=== PATIENT | female | born 1980 | race Caucasian/White ===

== ENCOUNTER → 2020-08-10 15:06 | Outpatient (CLI) | payer MEDICAID, SELFPAY ==
[2020-08-10 17:57] LABS: Amphetamine Urine VISTA NEGATIVE (<1000 ng/mL); Barbiturate Urine VISTA NEGATIVE (< 200 ng/mL); Benzodiazepine Urine VISTA NEGATIVE (< 200 ng/mL); Cocaine Urine VISTA NEGATIVE (< 300 ng/mL); Ecstacy Urine VISTA NEGATIVE (< 500 ng/mL); Methadone Urine VISTA NEGATIVE (< 300 ng/mL); PCP Urine VISTA NEGATIVE (< 25 ng/mL); THC Urine VISTA POSITIVE (< 50 ng/mL); Vista UDS pH Range 6
[2020-08-11 08:05] LABS: BUP Internal Control LINE = VALID (VALID); Buprenorphine Drug Screen Positive (<10 ng/mL)
== END ==
PROVIDERS: Referring Provider Anesthesiology Pain Medicine; Visit Provider Anesthesiology Pain Medicine
DX: F11.20 Opioid dependence, uncomplicated (principal)
CPT/HCPCS: 80307

== ENCOUNTER 2021-06-22 13:18 | Emergency (ER) | payer MEDICAID, SELFPAY ==
[2021-06-22 13:19] VITALS: BP 94/57; PULSE 82; RESP 17; TEMP 36.4; O2SAT 100; BMI 24.1
[2021-06-22] MEDS: 0.9% Normal Saline 1,000 ML 1000 ML IV (13:47)
[2021-06-22 13:58] LABS: Absolute Lymphocyte Count 2.44 X10^3/uL (0.83-4.51); Absolute Neutrophil Count 2.8 X10^3/uL (2.0-7.7); Basophil# 0.05 X10^3/uL; Basophil% 0.8 % (0-1); Eosinophil# 0.18 X10^3/uL; Hematocrit 34.5 % (37-47); Hemoglobin 11.3 g/dL (12.0-15.0); Lymphocyte # 2.44 X10^3/ul (0.83-4.51); Lymphocyte % 41.3 % (19-41); Mean Corp Hgb Conc 32.8 g/dL (32-36); Mean Corpuscular Hgb 31.7 pg (27.0-32.0); Mean Corpuscular Volume 96.6 fL (81-99); Mean Platelet Vol. 9.6 fl (6.2-12.0); Monocyte# 0.44 X10^3/uL; Monocyte% 7.4 % (0-10); NRBC Flagged by Analyzer 0 % (0-5); Neutrophil # 2.79 X10^3/uL (2.7-7.7); Neutrophil % 47.3 % (47-70); Platelet Count 262 K/mm3 (150-450); RBC Distribution Width CV 12.9 % (11.6-14.6); Red Blood Count 3.57 M/mm3 (4.2-5.4); White Blood Count 5.9 K/mm3 (4.4-11.0)
[2021-06-22 14:00] LABS: Bedside Glucose 89 mg/dL (74-106)
[2021-06-22 14:00] LABS: Bedside Glucose 65 mg/dL (74-106)
[2021-06-22 14:06] LABS: Internal QC Validated? YES +Cl - CLEAR BKGD; Pregnancy, Serum, hCG Quali. NEGATIVE Negative
[2021-06-22 14:19] LABS: Alcohol, Blood (Medical)-Serum < 3.0 mg/dL
[2021-06-22 14:22] LABS: AST(SGOT) 15 U/L (15-37); Alanine Aminotransfer ALT/SGPT 15 U/L (13-56); Albumin, Serum 3.8 g/dL (3.2-5.0); Alkaline Phosphatase 65 U/L (45-117); Anion Gap 4 (5-15); BUN 15 mg/dL (7-18); BUN/Creat Ratio 20.8 RATIO (10-20); Calcium,Total 8.4 mg/dL (8.5-10.1); Chloride 110 mmol/L (98-107); Creatinine, Serum 0.72 mg/dL (0.55-1.02); EST Glomerular Filtration Rate 95 mL/min (>60); Est Glom Filt Rate - Afr Amer 115 mL/min (>60); Estimated Creatinine Clearance 92.53 ml/min; Globulin 3.9 g/dL (2.2-4.2); Glucose 111 mg/dL (74-106); Potassium 3.7 mmol/L (3.5-5.1); Protein, Total 7.7 g/dL (6.4-8.2); Sodium Level 139 mmol/L (136-145); Thyroid Stim Hormone (TSH) 2.98 uIU/mL (0.358-3.74)
--- NOTE | 2021-06-22 14:22 | ED.RN ---
THIS RN ENTERS PATIENTS ROOM ASKING IF SHE IS HITTING HER VAPE IN HERE. AND PATIENT DENIES AT THIS TIME. RN STATES IT SMELLS LIKES MARIJUANA IN HERE AND JUST WANTED TO MAKE SURE . PATIENT BECOMES UPSET WITH RN AND STATES HAS A MEDICAL MARIJUANA CARD. PATIENT BECOMES UPSET WITH STATING HE IS THE ONE USING MARIJUANA NOT HER. PATIENTS AND PATIENT ARGUING IN ROOM. MULTIPLE WITNESSES IN THE HALLWAY. RN ASKS IF PATIENT CAN GIVE URINE SAMPLE AT THIS TIME. PATIENT AMBULATES TO BATHROOM INDEPENDENTLY. PATIENT CONTINUES TO BE UPSET WITH RN ASKING HER WHY NURSE IS QUESTIONING HER ABOUT HER VAPE AND MARIJUANA. PATIENT STATES SHE WOULD LIKE TO TALK TO HER AND LEAVE NOW. PATIENT STATES SHE WOULD LIKE TO FILE A GRIEVANCE AGAINST RN. CHARGE NURSE, ETHAN NOTIFIED. RITU, PATIENT ADVOCATE AT BEDSIDE. SMALL URINE SPECIMEN COLLECTED AND SENT TO LAB.
--- NOTE | 2021-06-22 14:24 | EDS_ITS ---
HPI History of Present Illness Chief Complaint: Weakness Narrative Narrative: Patient presenting with generalized weakness, confusion. She states that she noted a couple of days ago that she felt shaky at night and had some blurry vision associated with generalized weakness. She states that she generally does not take very good care of herself and does not eat well and describes eating Ramen noodles and chicken no soup mostly. She states that when she gets episodes of this shakiness that she will eat some candy and this does help her. Patient states today at work she started to feel little bit off and EMS was called. It was noted that her blood sugar was low. She was given g lucose prior to arrival and is awake and alert on exam. Patient does not have any chest pain or shortness of breath. No fever or chills. No nausea or vomiting. 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 She states she sees Dr. Meadows and saw him 2 days ago. She also states she saw her primary care provider this week. She states she has not had blood work done in a very long time. Patient does admit that she uses CBD and has a vaping pen which she uses for marijuana use. PFSH PFS Home Medications aripiprazole mg 06/22/21 [History Last Taken Unknown] atomoxetine PO 06/22/21 [History Last Taken Unknown] buprenorphine-naloxone 06/22/21 [History Last Taken Unknown] cephalexin 500 mg PO Q12 #14 cap 06/22/21 [Rx Last Taken Unknown] citalopram mg 06/22/21 [History Last Taken Unknown] fluticasone propionate INTRANASAL 06/22/21 [History Last Taken Unknown] loratadine mg 06/22/21 [History Last Taken Unknown] methylprednisolone 06/22/21 [History Last Taken Unknown] oseltamivir mg 06/22/21 [History Last Taken Unknown] quetiapine 06/22/21 [History Last Taken Unknown] topiramate 06/22/21 [History Last Taken Unknown] Allergy/AdvReac Type Severity Reaction Status Date / Time No Known Allergies Allergy Verified 06/22/21 13:44 Social History Smoking Status: Current every day smoker tobacco type: e-cigarettes ROS ROS ED Constitutional Constitutional ED: Reports sweats; Denies chills or fever(s) Eyes Eyes: Reports blurry vision bilateral ENT ENT ED: Denies ear pain Cardiovascular Cardiovascular: Denies chest pain or palpitations Respiratory/Chest Respiratory/Chest: Denies cough or dyspnea Gastrointestinal Gastrointestinal: Denies abdominal pain, nausea or vomiting Genitourinary Genitourinary ED: Denies dysuria or hematuria Musculoskeletal Musculoskeletal: Denies arthralgias or myalgias Integumentary Denies rash Neurologic Neurologic: Denies headache(s) or weakness Psychiatric Psychiatric: Reports anxiety; Denies depression Endocrine Endocrinology: Denies polydipsia or polyuria EXAM Physical Exam Const Vital Signs: 06/22/21 13:19 06/22/21 13:48 Temperature 97.5 F L Temperature Source Temporal Pulse Rate 82 Respiratory Rate 17 Respiratory Pattern Normal Blood Pressure 94/57 L Blood Pressure Mean 69 Pulse Ox 100 Oxygen Delivery Method Room Air Positive well nourished General Appearance ED: NAD; Negative for pallor HEENT Reports moist mucous membranes Negative for trauma Eyes PERRL and EOMs intact bilaterally General Eye ED: Negative for pale conjunctiva or scleral icterus Neck no lymphadenopathy and supple Resp normal respiratory effort and clear to auscultation bilaterally Cardio regular rate and regular rhythm GI normal to inspection, nondistended, normoactive bowel sounds Neuro oriented x3, CN's II-XII intact bilaterally and no sensory deficits noted Sensorium / Orientation: alert Motor Exam: strength 5/5 throughout Psych mental status grossly normal Skin no rashes or lesions noted and no wounds General Skin Exam: Negative for jaundice or pallor MDM MDM MDM Narrative Medical decision making narrative: Patient initially given dextrose in the ER because her blood sugar was slightly low in the field. She was initially given some however she appeared to be confused and nurses. This was given to keep her from getting hypoglycemic. Her blood blood glucose here was 65. CBC obtained shows no leukocytosis. Hemoglobin stable at 11.3. Platelets normal 262. Renal function and electrolytes are normal. LFTs are within normal limits. TSH normal at 2.98. EtOH negative. At 1430 nursing staff came to me and told me that she wishes to leave at this time. This is apparently because she was told she cannot vape in the emergency room. It is believed that she is vaping cannabinoids. I went and reevaluated her and she confirms this. I counseled her that her blood work thus far is normal and I do not have any abnormal findings other than the low blood sugar. I recommended she start feeling symptomatic to eat and sugar. She states that she does typically eat sugar packets or candy when this happens. Patient discharged in stable condition. Urinalysis did come back positive for nitrites. I attempted to call the number in the system however the phone was not answered and the mailbox is full. This was passed off to nursing to try to contact her. A prescription was printed as there is no pharmacy listed. Once they contact her she will be able to come pick this up. Impression: 1. Weakness 2. Hypoglycemia 3. UTI Lab Data Attestation: I reviewed the patient's lab results. Labs: Laboratory Results - last 24 hr 06/22/21 06/22/21 06/22/21 13:25 13:40 13:40 WBC 5.9 RBC 3.57 L Hgb 11.3 L Hct 34.5 L MCV 96.6 MCH 31.7 MCHC 32.8 RDW Std Deviation 46.0 H RDW Coeff of [place]jam[place] 12.9 Plt Count 262 MPV 9.6 Immature Gran % (Auto) 0.200 Neut % (Auto) 47.3 Lymph % (Auto) 41.3 H [place] % (Auto) 7.4 Eos % (Auto) 3.0 Baso % (Auto) 0.8 Absolute Neuts (auto) 2.8 Absolute Lymphs (auto) 2.44 Nucleated RBC % 0 Sodium 139 Potassium 3.7 Chloride 110 H Carbon Dioxide 25.0 Anion Gap 4 L BUN 15 Creatinine 0.72 Estim Creat Clear Calc 92.53 Est GFR (MDRD) Af Amer 115 Est GFR (MDRD) Non-Af 95 BUN/Creatinine Ratio 20.8 H Glucose 111 H Calcium 8.4 L Total Bilirubin 0.20 AST 15 ALT 15 Alkaline Phosphatase 65 Total Protein 7.7 Albumin 3.8 Globulin 3.9 Albumin/Globulin Ratio 1.0 TSH 2.98 Serum , Qual Urine Color Urine Clarity Urine pH Ur Specific [place] Urine Protein Urine Glucose (UA) Urine Ketones Urine Occult Blood Urine Nitrite Urine Bilirubin Urine Urobilinogen Ur Leukocyte Esterase Urine RBC Urine WBC Ur Squamous Epith Cells Ur Transition Epith Cell Ur Renal Epithelial Cell Calcium Oxalate Crystal Uric Acid Crystals Triple Phos Crystals Other Crystals Amorphous Sediment Urine Bacteria Hyaline Casts Fine Granular Casts Coarse Granular Casts Waxy Casts RBC Casts WBC Casts Urine Mucus Urine Trichomonas Urine Yeast Urine Opiates Screen Urine Methadone Screen Ur Barbiturates Screen Ur Phencyclidine Scrn Ur Amphetamines Screen MDMA (Ecstasy) Screen U Benzodiazepines Scrn Urine Cocaine Screen U Cannabinoids Screen Ur Drug Screen Comment Ethyl Alcohol POC Glucose 65 L 06/22/21 06/22/21 06/22/21 13:40 13:40 13:54 WBC RBC Hgb Hct MCV MCH MCHC RDW Std Deviation RDW Coeff of [place]jam[place] Plt Count MPV Immature Gran % (Auto) Neut % (Auto) Lymph % (Auto) [place] % (Auto) Eos % (Auto) Baso % (Auto) Absolute Neuts (auto) Absolute Lymphs (auto) Nucleated RBC % Sodium Potassium Chloride Carbon Dioxide Anion Gap BUN Creatinine Estim Creat Clear Calc Est GFR (MDRD) Af Amer Est GFR (MDRD) Non-Af BUN/Creatinine Ratio Glucose Calcium Total Bilirubin AST ALT Alkaline Phosphatase Total Protein Albumin Globulin Albumin/Globulin Ratio TSH Serum , Qual NEGATIVE Urine Color Urine Clarity Urine pH Ur Specific [place] Urine Protein Urine Glucose (UA) Urine Ketones Urine Occult Blood Urine Nitrite Urine Bilirubin Urine Urobilinogen Ur Leukocyte Esterase Urine RBC Urine WBC Ur Squamous Epith Cells Ur Transition Epith Cell Ur Renal Epithelial Cell Calcium Oxalate Crystal Uric Acid Crystals Triple Phos Crystals Other Crystals Amorphous Sediment Urine Bacteria Hyaline Casts Fine Granular Casts Coarse Granular Casts Waxy Casts RBC Casts WBC Casts Urine Mucus Urine Trichomonas Urine Yeast Urine Opiates Screen Urine Methadone Screen Ur Barbiturates Screen Ur Phencyclidine Scrn Ur Amphetamines Screen MDMA (Ecstasy) Screen U Benzodiazepines Scrn Urine Cocaine Screen U Cannabinoids Screen Ur Drug Screen Comment Ethyl Alcohol < 3.0 POC Glucose 89 06/22/21 06/22/21 14:23 14:23 WBC RBC Hgb Hct MCV MCH MCHC RDW Std Deviation RDW Coeff of [place]jam[place] Plt Count MPV Immature Gran % (Auto) Neut % (Auto) Lymph % (Auto) [place] % (Auto) Eos % (Auto) Baso % (Auto) Absolute Neuts (auto) Absolute Lymphs (auto) Nucleated RBC % Sodium Potassium Chloride Carbon Dioxide Anion Gap BUN Creatinine Estim Creat Clear Calc Est GFR (MDRD) Af Amer Est GFR (MDRD) Non-Af BUN/Creatinine Ratio Glucose Calcium Total Bilirubin AST ALT Alkaline Phosphatase Total Protein Albumin Globulin Albumin/Globulin Ratio TSH Serum , Qual Urine Color Yellow Urine Clarity Clear Urine pH 6.5 Ur Specific [place] 1.015 Urine Protein 30 H Urine Glucose (UA) Normal Urine Ketones Negative Urine Occult Blood Negative Urine Nitrite Positive H Urine Bilirubin Negative Urine Urobilinogen 4 H Ur Leukocyte Esterase 25 H Urine RBC Cancelled Urine WBC Cancelled Ur Squamous Epith Cells Cancelled Ur Transition Epith Cell Cancelled Ur Renal Epithelial Cell Cancelled Calcium Oxalate Crystal Cancelled Uric Acid Crystals Cancelled Triple Phos Crystals Cancelled Other Crystals Cancelled Amorphous Sediment Cancelled Urine Bacteria Cancelled Hyaline Casts Cancelled Fine Granular Casts Cancelled Coarse Granular Casts Cancelled Waxy Casts Cancelled RBC Casts Cancelled WBC Casts Cancelled Urine Mucus Cancelled Urine Trichomonas Cancelled Urine Yeast Cancelled Urine Opiates Screen NEGATIVE Urine Methadone Screen NEGATIVE Ur Barbiturates Screen NEGATIVE Ur Phencyclidine Scrn NEGATIVE Ur Amphetamines Screen NEGATIVE MDMA (Ecstasy) Screen NEGATIVE U Benzodiazepines Scrn NEGATIVE Urine Cocaine Screen NEGATIVE U Cannabinoids Screen POSITIVE H Ur Drug Screen Comment Ethyl Alcohol POC Glucose Discharge Plan Triage Chief Complaint: Weakness ED Provider: Nile Camp Dx/Rx/DC Orders Instructions: ED Hypoglycemia, Nondiabetic, ED CYSTITIS Female Adult, ED Weakness (Uncertain Cause) Prescriptions: New cephalexin 500 mg capsule 500 mg PO Q12 Qty: 14 RF: 0 No Action quetiapine 25 mg tablet RF: 0 citalopram 20 mg tablet RF: 0 oseltamivir 75 mg capsule RF: 0 methylprednisolone 4 mg tablets,dose pack RF: 0 fluticasone propionate 50 mcg/actuation spray,suspension INTRANASAL RF: 0 loratadine 10 mg tablet RF: 0 aripiprazole 10 mg tablet RF: 0 atomoxetine 40 mg capsule PO RF: 0 topiramate 50 mg tablet RF: 0 buprenorphine-naloxone 8-2 mg film RF: 0 Primary Care Provider: Telly Sweeney NP Referrals: Telly Sweeney WELFARE MANAGER, WELFARE MANAGER-C [Primary Care Provider] - Disposition Disposition: Home, Self Care Discharge Date/Time: 06/22/21 15:17
[2021-06-22 14:34] LABS: Color, Urine Yellow (Yellow); Glucose, Dipstick Normal (Normal); Ketone-Dipstick Negative (Negative); Leukocyte Esterase-Dipstick 25 /ul (Negative); Nitrite-Dipstick Positive (Negative); Occult Blood-Urine Negative /ul (Negative); Protein-Dipstick 30 mg/dl (Negative); Specific Gravity, Urine 1.015 (1.002-1.030); Urine Bilirubin Dipstick Negative (Negative); Urine Clarity Clear (Clear); Urine Urobilinogen 4 mg/dl (Normal); Urine pH 6.5 (5.0 - 8.0)
--- NOTE | 2021-06-22 15:02 | ED.RN ---
I was asked to visit with patient as she wanted to file a grievance related to the fact the staff had accused her of vaping in the room. The staff described a smell of marijuana prior to asking about the vape use. I did smell a different aroma upon entering the room but was unable to determine the source. The patient denied using the vape several times stating she was chewing nicotine gum. Her returned to the room and Dr. Camp talked with them about her lab results. He stated he wanted to do a urine test for uti saying this could be a source of glucose dropping. The patient refused this stating she just wanted to leave. I had heard the patient dumped her urine but there is a sample available. The test will be run and the patient is not being required to wait. The physician talked about adjusting her diet to assist in maintaining her glucose levels. She and her verbalized understanding. I spoke to them after the physician left related to filing a complaint. The patient responded with, I would never file a complaint. I'm not that kind of person. Her responded, We love this place and want to thank them for helping us, We definitely don't want to file a complaint. I completed the patient's discharge instructions and spoke in depth about adjusting her diet and importance of follow up. They both verbalized understanding. The patient appeared groggy and slow to respond. I gave her orange juice, a cookie, and a sandwich. She ate most of the sandwich and cookie, drank the juice. She refused assist from the room. Ambulated with a steady gait with her .
[2021-06-22 15:31] LABS: Amphetamine Urine VISTA NEGATIVE (<1000 ng/mL); Barbiturate Urine VISTA NEGATIVE (< 200 ng/mL); Benzodiazepine Urine VISTA NEGATIVE (< 200 ng/mL); Cocaine Urine VISTA NEGATIVE (< 300 ng/mL); Ecstacy Urine VISTA NEGATIVE (< 500 ng/mL); Methadone Urine VISTA NEGATIVE (< 300 ng/mL); PCP Urine VISTA NEGATIVE (< 25 ng/mL); THC Urine VISTA POSITIVE (< 50 ng/mL); Vista UDS pH Range 6
== END 2021-06-22 15:17 | disposition home or self-care (01) ==
PROVIDERS: Emergency Provider Student in an Organized Health Care Education/Training Program; PCP Nurse Practitioner Family; Visit Provider Student in an Organized Health Care Education/Training Program
DX: E16.2 Hypoglycemia, unspecified (principal); N39.0 Urinary tract infection, site not specified; F12.90 Cannabis use, unspecified, uncomplicated; F17.290 Nicotine dependence, other tobacco product, uncomplicated
CPT/HCPCS: 80053; 80307; 81002; 82077; 82962; 84443; 84703; 85025; 96360; 99285; A4216

== ENCOUNTER 2021-12-30 16:35 | Emergency (ER) | payer MEDICAID, SELFPAY ==
[2021-12-30 16:37] VITALS: BP 118/65; PULSE 62; RESP 18; TEMP 35.9; O2SAT 100; BMI 23.1
--- NOTE | 2021-12-30 16:46 | US_ITS ---
STUDY: FIRST TRIMESTER OBSTETRICAL ULTRASOUND REASON FOR EXAM: Female, 41 years old and bleeding LMP: TECHNIQUE: Transvaginal TECHNICAL QUALITY: Adequate. PRIOR ULTRASOUND: None. FINDINGS: There is no demonstrated intrauterine gestational sac. The endometrium is filled with the fluid in the lower uterine segment. The uterus measures 9.3 x 6.1 x 4.9. There is no demonstrated uterine fibroid. The cervix is closed. The ovaries are not visualized. There is no fluid in the cul de sac. US/Transvaginal w/Preg US IMPRESSION: No intrauterine with fluid in the lower uterine segment. Differential diagnosis includes an in progress or no with endometrial fluid. Clinical correlation with beta hCG measurements is recommended. Electronically Signed: Telly Obregon MD at 18:36 EST ,
--- NOTE | 2021-12-30 16:47 | EDS_ITS ---
HPI HPI - Female History of Present Illness Chief Complaint: Vag Bld, Preg Detail of Chief Complaint: Abdominal pain and vaginal bleeding Informant: patient Narrative Narrative: Patient presents to the emergency department with lower abdominal pain and vaginal bleeding that started last evening. Patient thinks she is about 8 weeks . Her last menstrual period was about 3 months ago. Patient has not had follow-up with OB or ultrasound however was scheduled for tomorrow. Patient rates lower abdominal pain at 7 out of 10. She took some ibuprofen prior to coming in. Patient states that she is just having a light amount of bleeding. She has not passed any clots or tissue. She is not had a fever. She is not had vomiting. No diarrhea. No blood in her stool. She denies dysuria. Patient is . Prior similar symptoms: No PFSH PFSH Medical History (Updated 12/30/21 @ 18:[address] Laurie Stuart DO) Anxiety Depression Home Medications buprenorphine HCl 8 mg sublingual tablet 12 mg sublingual DAILY 12/30/21 [History Last Taken Unknown] tramadol 50 mg tablet 50 mg PO Q8H PRN pain #10 tabs 12/30/21 [Rx Last Taken Unknown] Allergy/AdvReac Type Severity Reaction Status Date / Time No Known Allergies Allergy Verified 12/30/21 16:36 Social History Smoking Status: Current every day smoker tobacco type: e-cigarettes ROS ROS ED Review of Systems ROS Unobtainable: other Constitutional Constitutional ED: Reports lethargy; Denies chills, fever(s), sweats or weight loss Eyes Eyes: Denies blurry vision, change in vision or diplopia ENT ENT ED: Denies rhinorrhea or sore throat Cardiovascular Cardiovascular: Denies chest pain, orthopnea or racing heartbeat Respiratory/Chest Respiratory/Chest: Denies cough, dyspnea, dyspnea on exertion, orthopnea or sputum Gastrointestinal Gastrointestinal: Reports abdominal pain; Denies diarrhea, nausea or vomiting Genitourinary Genitourinary ED: Reports other Details: Vaginal bleeding ; Denies dysuria, hematuria or urinary frequency Musculoskeletal Musculoskeletal: Denies arthralgias, back pain, myalgias or neck pain Integumentary Denies abscess, Abrasions or rash Neurologic Neurologic: Denies headache(s) or weakness Psychiatric Psychiatric: Denies anxiety, depression or suicidal thoughts Endocrine Endocrinology: Denies polydipsia, polyphagia or polyuria Hematologic/Lymphatic Hematologic/Lymphatic: Denies easy bleeding, easy bruising or lymphadenopathy Allergic/Immunologic Allergic/Immunologic ED: Denies mouth swelling, tongue swelling or urticaria EXAM Physical Exam Const Vital Signs: 12/30/21 16:37 Temperature 96.7 F L Temperature Source Temporal Pulse Rate 62 Respiratory Rate 18 Blood Pressure 118/65 Blood Pressure Mean 82 Pulse Ox 100 Oxygen Delivery Method Room Air Positive well nourished and well developed General Appearance ED: well developed and NAD HEENT Reports TM's clear and moist mucous membranes normocephalic and atraumatic; Negative for trauma or tenderness Tympanic Membrane ED: Yes TM's clear Eyes PERRL and EOMs intact bilaterally General Eye ED: Negative for pale conjunctiva or scleral icterus Neck no lymphadenopathy, supple and no JVD General: Negative for tenderness Chest Wall inspection of chest normal and palpation of chest normal Chest: Negative for tenderness Resp normal respiratory effort and clear to auscultation bilaterally Effort and Inspection: Negative for respiratory distress or pain with movement Auscultation: Negative for rhonchi, wheezes or diminished lung sounds Cardio regular rate, regular rhythm, S1 normal heart sound, S2 normal heart sound and no murmurs Peripheral Pulses: pulses 2+ throughout GI normal to inspection, nondistended, normoactive bowel sounds, soft to palpation, non-distended and no masses GI Narrative: Tenderness palpation over the suprapubic region as well as the right lower quadrant and left lower quadrant. There are some mild guarding. There is no rebound, rigidity, or peritoneal signs. Back/Spine no CVA tenderness and no thoracic nor lumbar tenderness Extremity normal to inspection General Extremety ED: Negative for edema General Extremity: Negative for edema Neuro oriented x3, CN's II-XII intact bilaterally, no sensory deficits noted and gait normal Sensorium / Orientation: awake, alert, oriented to person, oriented to place and oriented to time Motor Exam: strength 5/5 throughout and strength abnormal Psych mental status grossly normal Skin no rashes or lesions noted and no wounds MDM MDM MDM Narrative Medical decision making narrative: Patient quant was 6575. H&H was normal. Pelvic ultrasound showed fluid in the endometrial canal with no live noted. Recommended correlation with hCGs as this could be an in progress. I did discuss case with COMPUTER LABORATORY TECHNICIAN on-call Dr. Cho whom patient is supposed to see tomorrow who recommended follow-up with his office tomorrow and recommended RhoGAM. Patient will be given tramadol for pain. Lab Data Attestation: I reviewed the patient's lab results. Labs: Laboratory Results - last 24 hr 12/30/21 12/30/21 12/30/21 17:10 17:10 17:10 WBC 10.6 RBC 3.57 L Hgb 11.3 L Hct 33.3 L MCV 93.3 MCH 31.7 MCHC 33.9 RDW Std Deviation 40.9 RDW Coeff of Benjamín 11.9 Plt Count 214 MPV 9.7 Immature Gran % (Auto) 0.400 Neut % (Auto) 83.4 H Lymph % (Auto) 9.6 L [place] % (Auto) 5.8 Eos % (Auto) 0.4 Baso % (Auto) 0.4 Absolute Neuts (auto) 8.9 H Absolute Lymphs (auto) 1.02 Nucleated RBC % 0 HCG, Quant 6575 H Blood Type O NEGATIVE Radiography Diagnostic Testing: Clinical Impression(s) from Imaging Studies Obstetrics Ultrasound 12/30/21 16:46 IMPRESSION: No intrauterine with fluid in the lower uterine segment. Differential diagnosis includes an in progress or no with endometrial fluid. Clinical correlation with beta hCG measurements is recommended. Electronically Signed: Telly Obregon MD at 18:36 EST , Discharge Plan Triage Chief Complaint: Vag Bld, Preg ED Provider: Laurie Stuart Dx/Rx/DC Orders Clinical Impression: , threatened Instructions: ED Possible Miscarriage ... Prescriptions: New tramadol 50 mg tablet 50 mg PO Q8H PRN (Reason: pain) Qty: 10 0RF No Action buprenorphine HCl 8 mg tablet, sublingual 12 mg SUBLINGUAL DAILY Label Comments: Place 12 mg under tongue once a day as directed Primary Care Provider: Telly Sweeney NP Referrals: Marcial Cho MD [Med Staff - Active Staff] - 1 Day Telly Sweeney SPIRITUAL MINISTER, SPIRITUAL MINISTER-C [Primary Care Provider] - Disposition Disposition: Home, Self Care
[2021-12-30] MEDS: Ondansetron 4 MG/2 ML Vial IV (17:14)
[2021-12-30] MEDS: 0.9% Normal Saline 1,000 ML 1000 ML IV (17:14)
[2021-12-30 17:17] LABS: Absolute Lymphocyte Count 1.02 X10^3/uL (0.83-4.51); Absolute Neutrophil Count 8.9 X10^3/uL (2.0-7.7); Basophil# 0.04 X10^3/uL; Basophil% 0.4 % (0-1); Eosinophil# 0.04 X10^3/uL; Eosinophils% 0.4 % (0-5); Hematocrit 33.3 % (37-47); Hemoglobin 11.3 g/dL (12.0-15.0); Lymphocyte # 1.02 X10^3/ul (0.83-4.51); Lymphocyte % 9.6 % (19-41); Mean Corp Hgb Conc 33.9 g/dL (32-36); Mean Corpuscular Hgb 31.7 pg (27.0-32.0); Mean Corpuscular Volume 93.3 fL (81-99); Mean Platelet Vol. 9.7 fl (6.2-12.0); Monocyte# 0.61 X10^3/uL; Monocyte% 5.8 % (0-10); NRBC Flagged by Analyzer 0 % (0-5); Neutrophil # 8.85 X10^3/uL (2.7-7.7); Neutrophil % 83.4 % (47-70); Platelet Count 214 K/mm3 (150-450); RBC Distribution Width CV 11.9 % (11.6-14.6); RBC Distribution Width SD 40.9 fl (35.1-43.9); Red Blood Count 3.57 M/mm3 (4.2-5.4); White Blood Count 10.6 K/mm3 (4.4-11.0)
[2021-12-30 18:36] VITALS: BP 129/78; PULSE 99; RESP 16; O2SAT 98
[2021-12-30 18:36] LABS: hCG Titer Quant., Serum 6575 mIU/mL (1-3)
--- NOTE | 2021-12-30 20:02 | ED.RN ---
product does not scan verified with annelise garcia rn lot [id number] exp 27 september 2023. [facility] band #[id number].
[2021-12-30 20:04] VITALS: BP 134/78; PULSE 78; RESP 16; TEMP 36.6; O2SAT 98
== END 2021-12-30 20:34 | disposition home or self-care (01) ==
PROVIDERS: Emergency Provider Emergency Medicine; PCP Nurse Practitioner Family; Visit Provider Emergency Medicine
DX: O20.0 Threatened abortion (principal); O99.331 Smoking (tobacco) complicating pregnancy, first trimester; F17.290 Nicotine dependence, other tobacco product, uncomplicated; O09.521 Supervision of elderly multigravida, first trimester; R10.30 Lower abdominal pain, unspecified; O26.891 Other specified pregnancy related conditions, first trimester; Z3A.08 8 weeks gestation of pregnancy
CPT/HCPCS: 76817; 84702; 85025; 86850; 86900; 86901; 96361; 96372; 96374; 96375; 99284; J7030; A4216; J2405; J2790

== ENCOUNTER → 2022-06-03 | Outpatient (CLI) | payer MEDICAID, SELFPAY ==
[2022-06-03 13:21] LABS: Absolute Lymphocyte Count 1.36 X10^3/uL (0.83-4.51); Absolute Neutrophil Count 5.4 X10^3/uL (2.0-7.7); Basophil# 0.04 X10^3/uL; Basophil% 0.5 % (0-1); Eosinophil# 0.03 X10^3/uL; Eosinophils% 0.4 % (0-5); Hemoglobin 12.2 g/dL (12.0-15.0); Lymphocyte # 1.36 X10^3/ul (0.83-4.51); Lymphocyte % 18.1 % (19-41); Mean Corp Hgb Conc 34.9 g/dL (32-36); Mean Corpuscular Hgb 32.5 pg (27.0-32.0); Mean Corpuscular Volume 93.3 fL (81-99); Mean Platelet Vol. 9.3 fl (6.2-12.0); Monocyte# 0.67 X10^3/uL; Monocyte% 8.9 % (0-10); NRBC Flagged by Analyzer 0 % (0-5); Neutrophil % 71.8 % (47-70); Platelet Count 239 K/mm3 (150-450); RBC Distribution Width CV 12.4 % (11.6-14.6); RBC Distribution Width SD 42.3 fl (35.1-43.9); Red Blood Count 3.75 M/mm3 (4.2-5.4); White Blood Count 7.5 K/mm3 (4.4-11.0)
[2022-06-03 13:42] LABS: Amphetamine Urine VISTA NEGATIVE (<1000 ng/mL); Barbiturate Urine VISTA NEGATIVE (< 200 ng/mL); Benzodiazepine Urine VISTA NEGATIVE (< 200 ng/mL); Cocaine Urine VISTA NEGATIVE (< 300 ng/mL); Ecstacy Urine VISTA NEGATIVE (< 500 ng/mL); Methadone Urine VISTA NEGATIVE (< 300 ng/mL); PCP Urine VISTA NEGATIVE (< 25 ng/mL); THC Urine VISTA POSITIVE (< 50 ng/mL); Vista UDS pH Range 6
[2022-06-03 15:44] LABS: HIV - WCH Non-Reactive (Nonreactive); Hepatitis B Surface Antigen Non-Reactive (Nonreactive); Rubella IgG Reactive (Nonreactive); Syphilis Antibodies Non-reactive
[2022-06-03 16:10] LABS: Hepatitis C Antibody Equiv (Nonreactive)
[2022-06-05 05:07] LABS: V-Zoster IgG (Immunity) 2133 index (Immune >165)
[2022-06-07 12:09] LABS: HCV Quant. RNA PCR HCV Not Detected IU/mL (.)
[2022-06-09 12:07] LABS: HPV APTIMA, High Risk Negative (Negative)
== END | disposition home or self-care (01) ==
PROVIDERS: PCP Nurse Practitioner Family; Visit Provider Student in an Organized Health Care Education/Training Program
DX: Z34.81 Encounter for supervision of other normal pregnancy, first trimester (principal); B18.9 Chronic viral hepatitis, unspecified; N91.2 Amenorrhea, unspecified
CPT/HCPCS: 36415; 80307; 85025; 86703; 86762; 86780; 86787; 86803; 87086; 87088; 87340; 87522; 87624; 88175; G0145

== ENCOUNTER → 2022-07-30 | Outpatient (CLI) | payer MEDICAID, SELFPAY ==
[2022-07-30 17:52] LABS: Glucose Challenge Gest 1H 50g 84 mg/dL (70-140)
== END | disposition home or self-care (01) ==
LOC: WOBLAB 16:16
PROVIDERS: PCP Nurse Practitioner Family; Visit Provider Student in an Organized Health Care Education/Training Program
DX: Z34.82 Encounter for supervision of other normal pregnancy, second trimester (principal)
CPT/HCPCS: 36415; 82950

== ENCOUNTER → 2022-10-29 | Outpatient (CLI) | payer MEDICAID, SELFPAY ==
[2022-10-29 14:00] LABS: Absolute Lymphocyte Count 1.28 X10^3/uL (0.83-4.51); Basophil# 0.02 X10^3/uL; Basophil% 0.2 % (0-1); Eosinophil# 0.04 X10^3/uL; Eosinophils% 0.4 % (0-5); Hematocrit 26.2 % (37-47); Hemoglobin 8.8 g/dL (12.0-15.0); Lymphocyte # 1.28 X10^3/ul (0.83-4.51); Lymphocyte % 14.2 % (19-41); Mean Corp Hgb Conc 33.6 g/dL (32-36); Mean Corpuscular Volume 98.1 fL (81-99); Mean Platelet Vol. 9.1 fl (6.2-12.0); Monocyte# 0.58 X10^3/uL; Monocyte% 6.4 % (0-10); NRBC Flagged by Analyzer 0 % (0-5); Neutrophil # 7.04 X10^3/uL (2.7-7.7); Neutrophil % 77.9 % (47-70); Platelet Count 276 K/mm3 (150-450); RBC Distribution Width CV 13.3 % (11.6-14.6); RBC Distribution Width SD 47.3 fl (35.1-43.9); Red Blood Count 2.67 M/mm3 (4.2-5.4)
[2022-10-29 14:28] LABS: Glucose Challenge Gest 1H 50g 131 mg/dL (70-140)
[2022-10-29 14:51] LABS: Syphilis Antibodies Non-reactive
== END | disposition home or self-care (01) ==
PROVIDERS: PCP Nurse Practitioner Family; Visit Provider Student in an Organized Health Care Education/Training Program
DX: Z34.82 Encounter for supervision of other normal pregnancy, second trimester (principal); Z29.13 Encounter for prophylactic Rho(D) immune globulin
CPT/HCPCS: 36415; 82950; 85025; 86780; 86900; 86901